=== PATIENT | female | born 1970 | race Caucasian/White ===

== ENCOUNTER 2016-11-29 17:58 | Emergency (ER) | payer OTHER ==
[~2016-11-29] VITALS: Ht 177.8 cm; Wt 81.8 kg
[2016-11-29 19:35] VITALS: TEMP 98.1
[2016-11-29] MEDS ORDERED: PERCOCET 325 MG1 TA2 PO (20:16)
[2016-11-29 20:38] VITALS: BP 134/84; PULSE 60
== END 2016-11-29 20:40 | disposition home or self-care (01) ==
LOC: COL.ER 17:58
DX: S52.571A Other intraarticular fracture of lower end of right radius, initial encounter for closed fracture (principal); W18.30XA Fall on same level, unspecified, initial encounter; Y93.81 Activity, refereeing a sports activity; Y92.310 Basketball court as the place of occurrence of the external cause
CPT/HCPCS: J2405; J3010; J7030